=== PATIENT | female | born 2000 | race Caucasian/White ===

== ENCOUNTER 2024-06-27 00:55 | Inpatient (IN) ==
[2024-06-27 01:59] LABS: ABS Eosinophils 0.1 10^3/uL (0.0-0.5); ABS Lymphocytes 2.3 10^3/uL (1.0-4.8); ABS Monocytes 0.7 10^3/uL (0.0-0.9); ABS Neutrophils 9.5 10^3/uL (1.5-7.6); Hematocrit 36.6 % (35-45); Hemoglobin 12.2 g/dL (11.5-14.3); Lymphocyte % 18.4 %; Mean Corpuscular Hemoglobin 28.3 pg (27-33); Mean Corpuscular Hgb Conc 33.4 g/dL (31-36); Mean Corpuscular Volume 84.9 fL (80-97); Mean Platelet Volume 9.4 fL (7.5-11.2); Platelet Count 208 10^3/uL (150-450); Red Blood Count 4.31 10^6/uL (3.63-4.92); Red Cell Distribution Width 13.8 % (12-17); White Blood Count 12.7 10^3/uL (3.8-11.8)
[2024-06-27 02:03] LABS: Urine Benzodiazepine Screen None Detected (None Detect); Urine Cannabinoids Screen None Detected (None Detect); Urine Opiates Screen None Detected (None Detect)
[2024-06-27] MEDS: LACTATED RINGERS 1000 ML/HR *Bolus IV ONE (02:15)
[2024-06-27] MEDS ORDERED: Buffered Lidocaine 1% SYRIN 1 ml INTRADERM ONE (02:30)
[2024-06-27] MEDS ORDERED: Prochlorperazine 5 mg/ml 2 ml VIAL (10 mg) IV PRN (02:30)
[2024-06-27] MEDS ORDERED: Lidocaine 1% VIAL 10 MG/ML 30 ML VIAL INJ PRN (02:30)
[2024-06-27] MEDS: Lactated Ringers 1000 ml BAG 1,000 ML IV SCH (02:48)
[2024-06-27] MEDS: Penicillin G Potassium IV 5,000,000 UNITS in NS 0.9% 100 ML BAG IVPB ONE (02:48)
[2024-06-27] MEDS: Oxytocin in LR 20,000 MILLI.UNIT/1,000 ML BAG IV SCH (03:32)
[2024-06-27] MEDS: Nalbuphine 10 MG/ML 1 ML VIAL IV PRN (07:30)
[2024-06-27] MEDS: Penicillin G Potassium IV 3,000,000 UNITS in NS 0.9% 100 ML IVPB SCH (07:30)
[2024-06-27] MEDS ORDERED: Phenylephrine 40 mcg/mL 10mL (400mcg) SYRINGE ONE (10:22)
[2024-06-27] MEDS ORDERED: Lidocaine 1.5% EPI 1:200,000 30 ML SDV ONE (10:22)
[2024-06-27] MEDS: Lactated Ringers 1000 ml BAG 1,000 ML IV ONE (10:30)
[2024-06-27] MEDS: OBEPIDURAL (200 ML) 200 ML EPIDURAL ONE (11:00)
[2024-06-27] MEDS ORDERED: Lactated Ringers 1000 ml BAG 1,000 ML IV ONE (11:11)
[2024-06-27] MEDS ORDERED: Sodium Citrate/Citric Acid LIQ 15 ML UDC PO PRN (11:11)
[2024-06-27] MEDS ORDERED: Phenylephrine 40 mcg/mL 10mL (400mcg) SYRINGE IV PUSH PRN (11:11)
[2024-06-27] MEDS ORDERED: Lactated Ringers 1000 ml BAG 1,000 ML IV SCH ×2 (12:00→19:00)
[2024-06-27] MEDS ORDERED: OBEPIDURAL (200 ML) 200 ML EPIDURAL SCH (12:00)
[2024-06-27 13:12] LABS: Urine Appearance Clear; Urine Bilirubin Negative (Negative); Urine Blood 1+ (Negative); Urine Color Yellow; Urine Glucose Negative (Negative); Urine Ketones Trace (Negative); Urine Nitrite Negative (Negative); Urine Protein Trace (Negative); Urine Specific Gravity 1.035 (1.002-1.030); Urine Urobilinogen Negative (Negative); Urine pH 5.5 (5.0-8.0)
[2024-06-27 13:46] LABS: Urine Bacteria 3+ /HPF (Absent); Urine Red Blood Cell Trace(0-2/hpf) /HPF (0-Trace)
[2024-06-27] MEDS: Phenylephrine 40 mcg/mL 10mL (400mcg) SYRINGE IV PUSH PRN (15:03)
[2024-06-27] MEDS: Methylergonovine 0.2 mg AMPULE 1 ml AMP IM ONE (17:49)
[2024-06-27] MEDS: Methylergonovine 0.2 mg AMPULE 1 ml AMP ONE (17:49)
[2024-06-27] MEDS ORDERED: Glycerin ADULT 2.4 gm SUPP PR PRN (18:03)
[2024-06-27] MEDS ORDERED: Oxytocin in LR 20,000 MILLI.UNIT/1,000 ML BAG IV SCH (18:05)
[2024-06-27] MEDS: Dibucaine 1% OINT 28.35 GM TUBE PR PRN (20:05)
[2024-06-27] MEDS: Witch Hazel PAD JAR TOPICAL PRN (20:05)
[2024-06-28 06:44] LABS: ABS Eosinophils 0.1 10^3/uL (0.0-0.5); ABS Neutrophils 9.6 10^3/uL (1.5-7.6); Eosinophil % 0.7 %; Hematocrit 29.4 % (35-45); Hemoglobin 9.8 g/dL (11.5-14.3); Lymphocyte % 15.9 %; Mean Corpuscular Hemoglobin 28.6 pg (27-33); Mean Corpuscular Hgb Conc 33.4 g/dL (31-36); Mean Corpuscular Volume 85.6 fL (80-97); Mean Platelet Volume 9.2 fL (7.5-11.2); Platelet Count 176 10^3/uL (150-450); Red Blood Count 3.43 10^6/uL (3.63-4.92); Red Cell Distribution Width 13.8 % (12-17); White Blood Count 12.8 10^3/uL (3.8-11.8)
[2024-06-29 09:34] VITALS: BP 126/60
== END 2024-06-29 18:44 | disposition home or self-care (01) | DRG 807 ==
LOC: MCHOBOUT 00:55 → MCHOB 01:16
PROVIDERS: ADMIT Obstetrics & Gynecology; ATTEND Obstetrics & Gynecology